=== PATIENT | male | born 1990 | race Caucasian/White ===

== ENCOUNTER 2023-07-12 09:37 | Outpatient (AMB) | payer OTHER, SELFPAY ==
[2023-07-12 09:50] VITALS: BP 122/74; PULSE 95; O2SAT 98; BMI 27.4
--- NOTE | 2023-07-12 09:50 | MHC.OFFWIV ---
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 This happened about 2 hours ago at home while he was working with sheet metal. Denies pain. He cleaned area with soap and water and applied bandaid. Laceration was still bleeding about an hour after incident, so patient decided to come in. [facility] Social History Patient Tobacco Use Status: Never used Tobacco Review of Systems Const All systems reviewed & are unremarkable except as noted in HPI and below Physical Exam Vital Signs: Last Vital Signs Pulse 95 07/12/23 09:50 BP 122/74 07/12/23 09:50 Pulse Ox 98 07/12/23 09:50 BMI result Body Mass Index 27.4 Const General: cooperative, healthy appearing and no acute distress Nutritional Appearance: average body habitus Resp Effort & Inspection: normal respiratory effort Skin Other: approx 1.5cm linear laceration left lower/lateral forearm with small amount of granulation tissue visible. Easily able to manually approximate edges of skin. No pain, redness, swelling. Extrem General: Yes capillary refill normal and Yes no clubbing, cyanosis or edema Psych Appearance: grossly normal Mental Status: mental status grossly normal Speech and movement: Normal speech and movement present Office Procedures Laceration Repair Laceration repair performed by: More Lau Explained risks and benefits to parent: Yes Informed consent given: Yes Consent signed: Yes Location: left lower/lateral forearm Length: 1.5cm Sedation: No Anesthesia: other (none) Irrigation: saline Volume (mls): 30 Preparation: betadine Wound exploration: none Deep closure: No Skin closure: other (steri-strips) Topical treatment: dry Tetanus toxoid ordered: Yes Patient tolerated procedure: well [place]: [place] [id number] Repair <2.5cm Procedure code (CPT) selection complete Assessment & Plan Assessment & Plan (1) Laceration of left forearm: Code(s): S51.812A - Laceration without foreign body of left forearm, initial encounter Qualifiers: Encounter type: initial encounter Qualified Code(s): S51.812A - Laceration without foreign body of left forearm, initial encounter Plan: Laceration cleansed and easily closed with steri-strips. Non-adherant DSD applied with Tegaderm cover. Jermaine wrap applied over dressing. Reviewed wound care and indications to return to the clinic for further treatment/evaluation, including opening of laceration, increase in bleeding, or development of signs of infection such as redness, pain, warmth, or drainage. TDAP given in the office today. Patient and present at visit verbalize understanding and agree to plan. Orders: Orders TDaP Immunization Today S51.812A - Laceration without foreign body of left forearm, initial encounter, Z23 - Encounter for immunization Coding Level of Care Code Est Pt Level 4 (68638) Diagnoses Laceration of left forearm, initial encounter S51.812A Encounter type: initial encounter
== END 2023-07-12 10:46 | disposition home or self-care (01) ==
PROVIDERS: Visit Provider Nurse Practitioner Family
DX: Z23 Encounter for immunization (principal); S51.812A Laceration without foreign body of left forearm, initial encounter
CPT/HCPCS: 90471; 90715; 99214